=== PATIENT | female | born 1990 | race Caucasian/White ===

== ENCOUNTER 2017-03-27 20:36 | Emergency (ER) | payer BC, OTHER ==
[2017-03-27] MEDS ORDERED: MORPHINE SULFATE 4 MG INJ IV ONE ×2 (21:02→21:38)
[2017-03-27] MEDS ORDERED: MORPHINE SULFATE 4 MG INJ ONE ×2 (21:04→21:39)
--- NOTE | 2017-03-27 21:08 | ERPHSYRPT ---
- History of Present Illness Time Seen by Provider: 03/27/17 20:59 Source: patient Exam Limitations: no limitations Physician History: 26-year-old white female arrives with complaint of pain in her right wrist after being thrown from her horse just prior to arrival. Patient states that she was thrown from her horse she hit her head she did not have loss of consciousness she has no neck pain she has no chest pain no shortness of breath no back pain she has some pain in her right lateral hip however she walked into the emergency room. She has pain in her right distal forearm she states she cannot move her right wrist secondary to pain. Past medical history patient denies Past surgical history includes cholecystectomy Last menstrual period 3 weeks ago patient denies chance of Occurred: just prior to arrival Reason for Fall: fell from height (thrown from horse) Injuries/Pain Location: head (hit head no loss of consciousness), upper extremity (right forearm pain) Loss of Consciousness: no loss of consciousness Quality: aching, other (pain right forearm decreased range of motion right forearm secondary to pain) Severity of Pain-Max: moderate Severity of Pain-Current: moderate Modifying Factors: Improves With: nothing Associated Symptoms (Fall): extremity injury (right forearm pain), other ( landed on right hip), No abdominal pain, No back pain, No confusion, No chest pain, No dizziness, No headache, No lightheadedness, No muscle spasms, No nausea , No neck pain, No ringing in ears, No seizures, No shortness of breath, No slurred speech, No trouble walking, No vomiting, No vision changes Allergies/Adverse Reactions: No Known Drug Allergies Allergy (Verified 03/27/17 21:17) Home Medications: Apri 28 1 tab PO DAILY 03/27/17 [History] - Review of Systems Constitutional: No Fever, No Chills Eyes: No Symptoms Ears, Nose, & Throat: No Symptoms Respiratory: No Cough, No Dyspnea Cardiac: No Chest Pain, No Edema, No Syncope Abdominal/Gastrointestinal: No Abdominal Pain, No Nausea, No Vomiting, No Diarrhea Genitourinary Symptoms: No Dysuria Musculoskeletal: Other (pain right distal forearm, landed on right hip but walked in) Skin: No Rash Neurological: No Dizziness, No Focal Weakness, No Sensory Changes Psychological: No Symptoms Endocrine: No Symptoms All Other Systems: Reviewed and Negative - Past Medical History Pertinent Past Medical History: Yes Neurological History: No Pertinent History ENT History: No Pertinent History Cardiac History: No Pertinent History Respiratory History: No Pertinent History Endocrine Medical History: No Pertinent History Musculoskeletal History: No Pertinent History GI Medical History: Other History: No Pertinent History Psycho-Social History: No Pertinent History Female Reproductive Disorders: No Pertinent History Other Medical History: continued Recent nausea and abdominal pain with occasional loose stools since gallbladder removed - Past Surgical History Past Surgical History: Yes Neuro Surgical History: No Pertinent History Cardiac: No Pertinent History Respiratory: No Pertinent History Gastrointestinal: Cholecystectomy Genitourinary: Other Musculoskeletal: No Pertinent History Female Surgical History: No Pertinent History Other Surgical History: cystoscopy - Social History Drug Use: none - Nursing Vital Signs Nursing Vital Signs: Initial Vital Signs Temperature 98.2 F Temperature Source Oral Pulse Rate 68 Respiratory Rate 16 Blood Pressure [] 134/88 Pain Intensity 4 - Meg Coma Score Best Eye Response (Naoma): (4) open spontaneously Best Verbal Response (Meg): (5) oriented Best Motor Response (Meg): (6) obeys commands Meg Total: 15 - Physical Exam General Appearance: moderate distress Head Injury: no evidence of injury, No active bleeding, No Rincon's Sign, No contusions, No ecchymosis, No flap, No lacerations, No raccoon eyes, No swelling , No tenderness Eye Exam: PERRL/EOMI, eyes nml inspection, other (fundi are unremarkable) ENT Exam: airway nml Neck Exam: normal inspection, No tenderness Respiratory/Chest Exam: normal breath sounds, No chest tenderness, No respiratory distress Cardiovascular Exam: normal heart sounds, regular rate/rhythm Gastrointestinal Exam: soft, No tenderness, No distention, No guarding, No ecchymosis Back Exam: normal inspection, No vertebral tenderness Extremity Exam: other (right forearm tender distally decreased range of motion right wrist could capillary refill right finger sensation intact right finger full range of motion bilateral lower extremities mild tenderness right lateral hip) Peripheral Pulses: dorsalis-pedis (R): 2+ Neurologic Exam: alert, oriented x 3, cooperative, sensation nml, No motor deficits Skin Exam: normal color, warm, dry SpO2 Interpretation: normal (100%) SpO2: 100 Oxygen Delivery: Room Air - Course Nursing assessment & vital signs reviewed: Yes - Radiology Exams Right Forearm X-ray Interpretation: Interpreted by me, Other (impacted fracture right distal radius.) Ordered Tests: Active Orders 24 hr Category Date Time Status IV Insertion STAT Care 03/27/17 20:49 Active Sling Application STAT Care 03/27/17 21:39 Active Splint STAT Care 03/27/17 21:39 Active FOREARM Stat Exams 03/27/17 20:47 Taken Medication Summary Discontinued Medications Generic Name Dose Route Start Last Admin Trade Name Maricarmen PRN Reason Stop Dose Admin Morphine Sulfate 4 mg 03/27/17 21:02 03/27/17 21:06 Morphine Sulfate 4 Mg Inj IV 03/27/17 21:03 4 mg STAT ONE Administration Morphine Sulfate Confirm 03/27/17 21:04 Morphine Sulfate 4 Mg Inj Administered 03/27/17 21:05 Dose 4 mg .ROUTE .STK-MED ONE Morphine Sulfate 4 mg 03/27/17 21:38 Morphine Sulfate 4 Mg Inj IV 03/27/17 21:39 STAT ONE Morphine Sulfate Confirm 03/27/17 21:39 Morphine Sulfate 4 Mg Inj Administered 03/27/17 21:40 Dose 4 mg .ROUTE .STK-MED ONE - Progress Progress: improved Progress Note: 03/27/17 21:44 26-year-old white female arrives with complaint of pain in her right wrist after being thrown off a horse she has some minimal pain in her right hip. Patient is Ricarda head however no loss consciousness is alert oriented 3 she is walking into the emergency room. She does have a visible deformity of the right distal wrist with edema and tenderness overlying the distal right radius. X-ray of the right radius shows an impacted fracture of the right radius. She has good capillary refill to the right finger sensation intact to the right fingers decreased range of motion right finger secondary to pain right radial and ulnar pulses are intact 2 over 4. Will go ahead and place a long-arm splint on the patient give her splints send her home with Sawyer for pain. Patient will need to follow-up with her family doctor, Dr. Martinez, or [facility] Wednesday. - Departure Time of Disposition: 21:46 Departure Disposition: Home Clinical Impression: Fracture of right distal radius Qualifiers: Encounter type: initial encounter Fracture type: closed Fracture morphology: unspecified fracture morphology Qualified Code(s): S52.501A - Unspecified fracture of the lower end of right radius, initial encounter for closed fracture Fall Qualifiers: Encounter type: initial encounter Qualified Code(s): W19.XXXA - Unspecified fall, initial encounter Contusion of right hip Qualifiers: Encounter type: initial encounter Qualified Code(s): S70.01XA - Contusion of right hip, initial encounter Condition: Fair Critical Care Time: No Additional Instructions: Return home. Ice and elevate your right arm 24-48 hours. Sawyer 5/325 #20 one to 2 orally every 4-6 hours as needed for pain. Follow-up with Dr. Martienz, or [facility] Wednesday. Return for acute distress or for severe symptoms. Prescriptions: Hydrocodone/Acetaminophen [Sawyer 5-325 Tablet] 1 - 2 tab PO Q4-6HPRN PRN #20 tablet PRN Reason: Pain
[2017-03-27 21:42] VITALS: O2SAT 100
[2017-03-27 22:06] VITALS: BP 118/74; PULSE 72
[2017-03-27] MEDS ORDERED: NORCO 5/325 MG PO ONE (22:21)
[2017-03-27] MEDS ORDERED: NORCO 5/325 MG ONE (22:22)
--- NOTE | 2017-03-28 09:40 | XRAY ---
Indication: Pain following injury. Comparison: None 2 views of the right forearm demonstrates nondisplaced nonangulated transverse fracture involving the distal metadiaphysis of the radius with soft tissue swelling. No other bony, articular, or soft tissue abnormalities.
== END 2017-03-27 22:28 | disposition home or self-care (01) ==
LOC: ED 20:36
PROC: 2W38X1Z Immobilization of Right Upper Extremity using Splint (ICD-10-PCS; principal; 2017-03-27)
DX: S52.501A Unspecified fracture of the lower end of right radius, initial encounter for closed fracture (principal); S70.01XA Contusion of right hip, initial encounter; V80.010A Animal-rider injured by fall from or being thrown from horse in noncollision accident, initial encounter
CPT/HCPCS: 29105; 36000; 73090; 96374; 96376; 99284; J2270; A9270-GY